=== PATIENT | male | born 1980 | race Caucasian/White ===

== ENCOUNTER 2023-07-03 15:18 | Inpatient (IN) | payer MEDICAID ==
[~2023-07-03] VITALS: Ht 175.3 cm; Wt 141.3 kg
[2023-07-03 15:49] LABS: Basophils # (auto) 0 10 ^3/uL (0-0.2); Basophils % (auto) 0.5 % (0.0-2.0); Eosinophils # (auto) 0.1 10 ^3/uL (0-0.8); Eosinophils % (auto) 1.3 % (0.0-7.0); Hemoglobin 15.9 g/dL (13.5-17.5); Lymphocytes # (auto) 2.7 10 ^3/uL (0.4-5.4); Lymphocytes % (auto) 32.8 % (10.0-50.0); Mean Corpuscular Hemoglobin 31.1 pg (28.0-32.0); Mean Corpuscular Hgb Conc. 34.6 g/dL (32.0-36.0); Monocytes # (auto) 0.6 10 ^3/uL (0-1.3); Monocytes % (auto) 6.9 % (0.0-12.0); Neutrophils # (auto) 4.8 10 ^3/uL (1.6-8.6); Neutrophils % (auto) 58.5 % (37.0-80.0); Red Blood Cells 5.12 10^6/uL (4.5-5.90); White Blood Cell 8.1 10^3/uL (4.4-10.8)
[2023-07-03 15:57] LABS: Alanine Aminotransferase 73 U/L (7-40); Albumin 4.8 g/dL (3.2-4.8); Alkaline Phosphatase 48 U/L (46-116); Anion Gap 4 (5-15); Aspartate Aminotransferase 26 U/L (13-40); BUN/Creatinine Ratio 9.9 (10.0-20.0); Bilirubin, Total 0.5 mg/dL (0.2-1.0); Blood Urea Nitrogen 9 mg/dL (9-23); Calcium 10.5 mg/dL (8.5-10.1); Carbon Dioxide 30 mmol/L (20-30); Chloride 106 mmol/L (98-107); Glucose 94 mg/dL (74-106); Potassium 4.1 mmol/L (3.5-5.1); Sodium 140 mmol/L (136-145); Total Protein 7.2 g/dL (5.7-8.2)
[2023-07-03] MEDS: ASPirin 81 mg TAB PO ONE (16:13)
[2023-07-03] MEDS ORDERED: MORPHINE SULFATE INJ 2 MG/ml SYRG IV PRN (18:45)
[2023-07-03] MEDS ORDERED: DOCUSATE SOD 100 MG CAP PO PRN (18:45)
[2023-07-03] MEDS ORDERED: ONDANSETRON HCL 4 MG/2 ML VIAL IV PRN (18:45)
[2023-07-03] MEDS ORDERED: NITROGLYCERIN 0.4 MG SL TAB SL PRN (18:45)
[2023-07-03] MEDS ORDERED: OLME40TA78 PO (19:40)
[2023-07-03] MEDS ORDERED: LEVO175T2 PO (19:40)
[2023-07-04] VITALS (10 sets, daily range): BP systolic 101–137; BP diastolic 45–78; PULSE 63–108; RESP 16–22; TEMP 97.4–98.6; O2SAT 97–100
[2023-07-04] MEDS: SODIUM CHLOR 0.9% PF (SALINE LOCK) 10ML VIAL/SYR IV SCH (00:59)
[2023-07-04 05:13] LABS: Basophils # (auto) 0.1 10 ^3/uL (0-0.2); Basophils % (auto) 0.7 % (0.0-2.0); Eosinophils # (auto) 0.3 10 ^3/uL (0-0.8); Eosinophils % (auto) 3.3 % (0.0-7.0); Hematocrit 45.2 % (41.0-53.0); Hemoglobin 15.6 g/dL (13.5-17.5); Lymphocytes # (auto) 3.4 10 ^3/uL (0.4-5.4); Mean Corpuscular Hemoglobin 31.3 pg (28.0-32.0); Mean Corpuscular Hgb Conc. 34.5 g/dL (32.0-36.0); Mean Corpuscular Volume 90.7 fL (80.0-100.0); Monocytes # (auto) 0.5 10 ^3/uL (0-1.3); Monocytes % (auto) 6.2 % (0.0-12.0); Neutrophils # (auto) 3.8 10 ^3/uL (1.6-8.6); Neutrophils % (auto) 47.8 % (37.0-80.0); Nucleated Red Blood Cells % 0.1 %; Red Blood Cells 4.98 10^6/uL (4.5-5.90); Red Cell Distribution Width 13.2 % (11.8-14.3)
[2023-07-04 05:23] LABS: Alanine Aminotransferase 63 U/L (7-40); Albumin 4.4 g/dL (3.2-4.8); Alkaline Phosphatase 43 U/L (46-116); Anion Gap 3 (5-15); Aspartate Aminotransferase 30 U/L (13-40); Blood Urea Nitrogen 11 mg/dL (9-23); Calcium 9.5 mg/dL (8.5-10.1); Carbon Dioxide 30 mmol/L (20-30); Chloride 105 mmol/L (98-107); Glucose 90 mg/dL (74-106); Potassium 3.9 mmol/L (3.5-5.1); Sodium 138 mmol/L (136-145)
[2023-07-04 05:24] LABS: Bilirubin, Total 0.4 mg/dL (0.2-1.0); Total Protein 6.6 g/dL (5.7-8.2)
[2023-07-04] MEDS: LEVOTHYROXINE SODIUM 50 MCG TAB PO SCH (06:21)
[2023-07-04 07:26] LABS: Triglycerides 258 mg/dL (< 150)
[2023-07-04 07:27] LABS: LDL Cholesterol 124 mg/dL (< 100)
[2023-07-04 07:28] LABS: Cholesterol 179 mg/dL (< 200); HDL Cholesterol 33 mg/dL (40-59)
[2023-07-04] MEDS: LOSARTAN POTASSIUM 50 MG TAB PO SCH (10:18)
[2023-07-04 11:41] LABS: Amphetamine Screen, Urine Neg (NEGATIVE); Barbiturate Scree,Urine Neg (NEGATIVE); Benzodiazephine Screen, Urine Neg (NEGATIVE); Cocaine Screen, Urine Neg (NEGATIVE)
[2023-07-04 11:42] LABS: Cannabinoid Screen, Urine Neg (NEGATIVE); Opiate Scree,Urine Neg (NEGATIVE); Phencyclidine Screen, Urine Neg (NEGATIVE)
[2023-07-04] MEDS: ACETAMINOPHEN 325 MG TAB PO PRN (11:46)
[2023-07-04] MEDS: ATORVASTATIN 20 MG TAB PO ONE (14:06)
[2023-07-04] MEDS ORDERED: ENOXAPARIN SOD 40 MG/0.4 ML SYRINGE SC SCH (22:00)
[2023-07-04] MEDS: ENOXAPARIN SOD 60 MG/0.6 ML SYRINGE SC SCH (22:07)
[2023-07-05] VITALS (8 sets, daily range): BP systolic 119–157; BP diastolic 62–83; PULSE 71–94; RESP 16–22; TEMP 98–98.6; O2SAT 94–98
[2023-07-05] MEDS: ADENOSINE 118 MG in GIVE UN-DILUTED 0 ML IV ONE (09:59)
[2023-07-05] MEDS: LEVOTHYROXINE SODIUM 100 MCG/5 ML INJ IV SCH (10:47)
[2023-07-05] MEDS: ATORVASTATIN 20 MG TAB PO SCH (21:52)
[2023-07-06] VITALS (13 sets, daily range): BP systolic 106–124; BP diastolic 60–85; PULSE 60–80; RESP 12–21; TEMP 98–98.3; O2SAT 95–99
[2023-07-06 06:53] LABS: Basophils # (auto) 0.1 10 ^3/uL (0-0.2); Basophils % (auto) 0.7 % (0.0-2.0); Eosinophils # (auto) 0.2 10 ^3/uL (0-0.8); Eosinophils % (auto) 2.5 % (0.0-7.0); Hematocrit 46.3 % (41.0-53.0); Hemoglobin 15.6 g/dL (13.5-17.5); Lymphocytes # (auto) 2.7 10 ^3/uL (0.4-5.4); Lymphocytes % (auto) 35.8 % (10.0-50.0); Mean Corpuscular Hemoglobin 30.6 pg (28.0-32.0); Mean Corpuscular Hgb Conc. 33.6 g/dL (32.0-36.0); Monocytes # (auto) 0.5 10 ^3/uL (0-1.3); Monocytes % (auto) 7.1 % (0.0-12.0); Neutrophils % (auto) 53.9 % (37.0-80.0); Nucleated Red Blood Cells % 0.1 %; Red Blood Cells 5.09 10^6/uL (4.5-5.90); White Blood Cell 7.5 10^3/uL (4.4-10.8)
[2023-07-06 06:57] LABS: Calcium 9.5 mg/dL (8.5-10.1); Chloride 105 mmol/L (98-107); Potassium 4.1 mmol/L (3.5-5.1); Sodium 138 mmol/L (136-145)
[2023-07-06 06:58] LABS: Anion Gap 3 (5-15); Carbon Dioxide 30 mmol/L (20-30)
[2023-07-06 06:59] LABS: INR 1.02 (0.9-1.15); Partial Thromboplastin Time 29.5 SEC (24.5-34.5); Prothrombin Time 10.7 sec (9.3-11.8)
[2023-07-06 07:03] LABS: BUN/Creatinine Ratio 10.4 (10.0-20.0); Blood Urea Nitrogen 12 mg/dL (9-23); Glucose 92 mg/dL (74-106)
[2023-07-06 09:07] LABS: Hepatitis B Surface Antigen Negative (Negative)
[2023-07-06 09:29] LABS: Hepatitis C Antibody Negative (Negative)
[2023-07-06] MEDS: IODIXANOL 320MG/ML 100ML BTL IV ONE ×2 (14:05→14:50)
[2023-07-06] MEDS: LIDOCAINE 2%HCL (LOCAL ANESTH.) INJ 20ML MDV ONE (14:05)
[2023-07-06] MEDS: fentaNYL CITRATE 100 MCG/2 ML VL ONE (14:11)
[2023-07-06] MEDS: MIDAZOLAM HCL 2MG/2ML 2ml VIAL (1mg/ml) ONE (14:11)
[2023-07-06] MEDS: ANGIOMAX 250 MG VIAL IV ONE (14:11)
[2023-07-06] MEDS: HEPARIN SODIUM (PORCINE) 5000 UNITS/ML 1ML VIAL ONE (14:12)
[2023-07-06] MEDS: VERAPAMIL 2.5MG/ML INJ 2ML VIAL IV ONE (14:12)
[2023-07-06] MEDS: SODIUM CHL 0.9% 0 ML ONE (14:12)
[2023-07-07] VITALS (8 sets, daily range): BP systolic 107–143; BP diastolic 57–83; PULSE 66–84; RESP 18–20; TEMP 97.9–98.7; O2SAT 93–97
[2023-07-07 07:27] LABS: Chloride 105 mmol/L (98-107); Potassium 4.4 mmol/L (3.5-5.1); Sodium 138 mmol/L (136-145)
[2023-07-07 07:28] LABS: Anion Gap 3 (5-15); Calcium 9.7 mg/dL (8.5-10.1); Carbon Dioxide 30 mmol/L (20-30)
[2023-07-07 07:33] LABS: BUN/Creatinine Ratio 10.8 (10.0-20.0); Blood Urea Nitrogen 12 mg/dL (9-23); Glucose 87 mg/dL (74-106)
[2023-07-07] MEDS ORDERED: ENOXAPARIN SOD 60 MG/0.6 ML SYRINGE SC SCH (10:00)
[2023-07-07] MEDS: ENOXAPARIN SOD 40 MG/0.4 ML SYRINGE SC SCH (12:22)
[2023-07-07 20:50] LABS: COVID19 ANTIGEN SOFIA FIA NEGATIVE (NEGATIVE)
[2023-07-08 08:00] VITALS: PULSE 71; RESP 18; O2SAT 96
[2023-07-08 09:00] VITALS: BP 120/70; PULSE 71; RESP 18; TEMP 97.9; O2SAT 96
[2023-07-08 13:00] VITALS: BP 113/73; PULSE 77; RESP 16; TEMP 98.3; O2SAT 92
[2023-07-08 16:58] VITALS: BP 155/80; PULSE 80; RESP 18; TEMP 97.7; O2SAT 98
[2023-07-08 20:00] VITALS: PULSE 100; RESP 16
[2023-07-08 22:00] VITALS: BP 125/74; PULSE 83; RESP 18; TEMP 98.7; O2SAT 97
[2023-07-09] VITALS (8 sets, daily range): BP systolic 106–133; BP diastolic 58–77; PULSE 65–88; RESP 16–20; TEMP 97.7–98.7; O2SAT 94–98
[2023-07-09] MEDS: HYDROcodone-ACET 5/325MG TAB PO PRN (15:14)
[2023-07-10] VITALS (9 sets, daily range): BP systolic 106–163; BP diastolic 67–96; PULSE 61–93; RESP 15–19; TEMP 97.6–99; O2SAT 96–98
[2023-07-11 00:04] VITALS: BP 129/78
[2023-07-11 05:23] VITALS: BP 152/81; PULSE 73; RESP 18; TEMP 97.8; O2SAT 99
== END 2023-07-11 07:15 | disposition short-term general hospital (02) | DRG 191 ==
LOC: ER 15:18 → TELE 18:32 → TELE-WESTW 07-04 03:56
PROVIDERS: ADMIT Nurse Practitioner Family; ATTEND Family Medicine
PROC: 5A09357 Assistance with Respiratory Ventilation, Less than 24 Consecutive Hours, Continuous Positive Airway Pressure (ICD-10-PCS; 2023-07-04)
PROC: 4A023N7 Measurement of Cardiac Sampling and Pressure, Left Heart, Percutaneous Approach (ICD-10-PCS; principal; 2023-07-06)
PROC: B211YZZ Fluoroscopy of Multiple Coronary Arteries using Other Contrast (ICD-10-PCS; 2023-07-06)
DX: I25.110 Atherosclerotic heart disease of native coronary artery with unstable angina pectoris (principal); I24.9 Acute ischemic heart disease, unspecified; E66.01 Morbid (severe) obesity due to excess calories; E78.1 Pure hyperglyceridemia; E78.00 Pure hypercholesterolemia, unspecified; K21.9 Gastro-esophageal reflux disease without esophagitis; I10 Essential (primary) hypertension; G47.30 Sleep apnea, unspecified; Z68.42 Body mass index [BMI] 45.0-49.9, adult; Z90.49 Acquired absence of other specified parts of digestive tract; Z82.49 Family history of ischemic heart disease and other diseases of the circulatory system; Z87.442 Personal history of urinary calculi
CPT/HCPCS: 36415; 71045; 78452; 80048; 80053; 80061; 80307; 83036; 83735; 84443; 84484; 85025; 85610; 85730; 86803; 86850; 86900; 86901; 87340; 87426; 93005; 93017; 93306; 93458; 94660; 99152; G0378; J0153; J2250; J3490; Q9967

== ENCOUNTER 2023-10-16 20:02 | Inpatient (IN) | payer MEDICAID ==
[~2023-10-16] VITALS: Ht 180.3 cm; Wt 142.6 kg
[~2023-10-16 20:02] MED LIST: DICL50TA4 PO; HYDR-4902 PO; LEVO175T2 PO; OLME40TA78 PO; TRAM50TA2 PO
[2023-10-16 20:54] LABS: Basophils # (auto) 0 10 ^3/uL (0-0.2); Basophils % (auto) 0.6 % (0.0-2.0); Eosinophils # (auto) 0.2 10 ^3/uL (0-0.8); Eosinophils % (auto) 2.5 % (0.0-7.0); Hematocrit 44.4 % (41.0-53.0); Hemoglobin 15.3 g/dL (13.5-17.5); Lymphocytes # (auto) 2.5 10 ^3/uL (0.4-5.4); Lymphocytes % (auto) 35.1 % (10.0-50.0); Mean Corpuscular Hemoglobin 30.9 pg (28.0-32.0); Mean Corpuscular Hgb Conc. 34.4 g/dL (32.0-36.0); Monocytes # (auto) 0.4 10 ^3/uL (0-1.3); Monocytes % (auto) 6.3 % (0.0-12.0); Neutrophils # (auto) 3.9 10 ^3/uL (1.6-8.6); Neutrophils % (auto) 55.5 % (37.0-80.0); Nucleated Red Blood Cells % 0.1 %; Red Blood Cells 4.93 10^6/uL (4.5-5.90); Red Cell Distribution Width 13.1 % (11.8-14.3)
[2023-10-16] MEDS: NITROGLYCERIN 2% OINT 1GM PKG TD ONE (21:03)
[2023-10-16] MEDS: ASPirin 81 mg TAB PO ONE (21:03)
[2023-10-16 21:07] LABS: Alanine Aminotransferase 26 U/L (7-40); Alkaline Phosphatase 58 U/L (46-116)
[2023-10-16 21:08] LABS: Albumin 4.5 g/dL (3.2-4.8); Anion Gap 5 (5-15); Aspartate Aminotransferase 14 U/L (13-40); BUN/Creatinine Ratio 13.2 (10.0-20.0); Bilirubin, Total 0.4 mg/dL (0.2-1.0); Blood Urea Nitrogen 14 mg/dL (9-23); Calcium 10.1 mg/dL (8.5-10.1); Carbon Dioxide 30 mmol/L (20-30); Chloride 105 mmol/L (98-107); Glucose 131 mg/dL (74-106); Potassium 3.9 mmol/L (3.5-5.1); Sodium 140 mmol/L (136-145); Total Protein 7.4 g/dL (5.7-8.2)
[2023-10-16 23:45] VITALS: PULSE 77; RESP 14; O2SAT 97
[2023-10-16] MEDS: ONDANSETRON HCL 4 MG/2 ML VIAL IV ONE (23:50)
[2023-10-17] VITALS (9 sets, daily range): BP systolic 110–133; BP diastolic 3–87; PULSE 64–101; RESP 17–19; TEMP 97.7–98.2; O2SAT 94–97
[2023-10-17] MEDS: ACETAMINOPHEN 500 MG TAB PO ONE (00:39)
[2023-10-17] MEDS ORDERED: MELATONIN 5 MG TAB PO PRN (01:15)
[2023-10-17] MEDS ORDERED: NITROGLYCERIN 0.4 MG SL TAB SL PRN (01:15)
[2023-10-17] MEDS ORDERED: ACETAMINOPHEN 325 MG TAB PO PRN (01:15)
[2023-10-17] MEDS ORDERED: ONDANSETRON HCL 4 MG/2 ML VIAL IV PRN (01:15)
[2023-10-17] MEDS ORDERED: MORPHINE SULFATE INJ 2 MG/ml SYRG IV PRN (01:15)
[2023-10-17] MEDS ORDERED: hydrALAZINE HCL 20 MG/ML VL IV PRN (01:30)
[2023-10-17] MEDS: HYDROcodone-ACET 5/325MG TAB PO PRN (04:39)
[2023-10-17 04:57] LABS: Urine Bacteria FEW /hpf (None Seen); Urine Blood 1+ /uL (Negative); Urine Clarity Clear (Clear); Urine Color Yellow (Yellow); Urine Mucus FEW (None Seen); Urine Protein, UAD 1+ (Negative); Urine Specific Gravity 1.034 (1.001-1.035); Urine Urobilinogen Normal (Negative); Urine WBC 32 /hpf (0 - 3); Urine pH 5.5 (5.0-9.0)
[2023-10-17 06:27] LABS: Chloride 105 mmol/L (98-107); Potassium 3.9 mmol/L (3.5-5.1); Sodium 140 mmol/L (136-145)
[2023-10-17 06:28] LABS: Anion Gap 5 (5-15); Calcium 9.8 mg/dL (8.7-10.4); Carbon Dioxide 30 mmol/L (20-30)
[2023-10-17 06:33] LABS: BUN/Creatinine Ratio 16.2 (10.0-20.0); Blood Urea Nitrogen 17 mg/dL (9-23); Glucose 92 mg/dL (74-106)
[2023-10-17] MEDS ORDERED: FAMOTIDINE 20 MG TAB PO SCH (10:00)
[2023-10-17] MEDS ORDERED: FURO40TA4 PO (10:09)
[2023-10-17] MEDS ORDERED: ASPI325T6 PO (10:09)
[2023-10-17] MEDS ORDERED: METO25TA5 PO (10:09)
[2023-10-17] MEDS ORDERED: ATOR20TA50 PO (10:09)
[2023-10-17] MEDS ORDERED: CLOP75TA70 PO (10:09)
[2023-10-17] MEDS ORDERED: POTA-36 PO (10:10)
[2023-10-17] MEDS: cefTRIAXone 1GM/50ML D5W 50 ML IV SCH (10:39)
[2023-10-17] MEDS: ENOXAPARIN SOD 40 MG/0.4 ML SYRINGE SC SCH (10:40)
[2023-10-17] MEDS: ASPirin 81 mg TAB PO SCH (10:40)
[2023-10-17] MEDS: LEVOTHYROXINE SODIUM 100 MCG TAB PO SCH (15:03)
[2023-10-17] MEDS: LEVOTHYROXINE SODIUM 25 MCG TAB PO SCH (15:04)
[2023-10-17] MEDS: LOSARTAN POTASSIUM 50 MG TAB PO SCH (15:28)
[2023-10-17] MEDS: ATORVASTATIN 20 MG TAB PO SCH (22:50)
[2023-10-18] VITALS (13 sets, daily range): BP systolic 115–151; BP diastolic 61–93; PULSE 68–86; RESP 12–20; TEMP 97.3–98.3; O2SAT 91–98
[2023-10-18] MEDS ORDERED: FAMOTIDINE 20 MG TAB PO SCH (10:00)
[2023-10-18] MEDS: IOHEXOL 350 MG/ML 100ML IJ ONE (13:19)
[2023-10-18] MEDS: LIDOCAINE 2%HCL (LOCAL ANESTH.) INJ 20ML MDV ONE (14:34)
[2023-10-18] MEDS: IODIXANOL 320MG/ML 100ML BTL IV ONE (14:34)
[2023-10-18] MEDS: VERAPAMIL 2.5MG/ML INJ 2ML VIAL IV ONE (14:36)
[2023-10-18] MEDS: fentaNYL CITRATE 100 MCG/2 ML VL ONE (14:36)
[2023-10-18] MEDS: ANGIOMAX 250 MG VIAL IV ONE (14:36)
[2023-10-18] MEDS: HEPARIN SODIUM (PORCINE) 5000 UNITS/ML 1ML VIAL ONE (14:36)
[2023-10-18] MEDS: MIDAZOLAM HCL 2MG/2ML 2ml VIAL (1mg/ml) ONE (14:37)
[2023-10-18] MEDS: SODIUM CHL 0.9% 0 ML ONE (14:37)
[2023-10-18 15:01] LABS: INR 1.01 (0.9-1.15); Prothrombin Time 10.7 sec (9.3-11.8)
[2023-10-18] MEDS ORDERED: ASPI81CH49 PO (15:59)
[2023-10-18] MEDS ORDERED: POTA-180 PO (15:59)
[2023-10-18] MEDS ORDERED: GABA-1250 PO (16:06)
[2023-10-18] MEDS: SODIUM CHLORIDE 0.9% 1,000 ML IV SCH (19:00)
[2023-10-19 01:00] VITALS: BP_SYST 135; BP_SYST 145; BP_SYST 146; BP_DIAS 62; BP_DIAS 77; BP_DIAS 90; PULSE 70; PULSE 89; PULSE 93; RESP 17; RESP 18; TEMP 96.5; O2SAT 94; O2SAT 95; O2SAT 99
[2023-10-19 06:30] LABS: Basophils # (auto) 0 10 ^3/uL (0-0.2); Basophils % (auto) 0.6 % (0.0-2.0); Eosinophils # (auto) 0.2 10 ^3/uL (0-0.8); Eosinophils % (auto) 2.2 % (0.0-7.0); Hematocrit 43.7 % (41.0-53.0); Lymphocytes # (auto) 2.5 10 ^3/uL (0.4-5.4); Lymphocytes % (auto) 33.6 % (10.0-50.0); Mean Corpuscular Hemoglobin 30.8 pg (28.0-32.0); Mean Corpuscular Hgb Conc. 34.4 g/dL (32.0-36.0); Mean Corpuscular Volume 89.6 fL (80.0-100.0); Monocytes # (auto) 0.5 10 ^3/uL (0-1.3); Neutrophils # (auto) 4.2 10 ^3/uL (1.6-8.6); Neutrophils % (auto) 56.6 % (37.0-80.0); Nucleated Red Blood Cells % 0.1 %; Red Blood Cells 4.88 10^6/uL (4.5-5.90); White Blood Cell 7.3 10^3/uL (4.4-10.8)
[2023-10-19 06:44] LABS: Alanine Aminotransferase 28 U/L (7-40); Alkaline Phosphatase 53 U/L (46-116); Anion Gap 5 (5-15); BUN/Creatinine Ratio 10.4 (10.0-20.0); Blood Urea Nitrogen 10 mg/dL (9-23); Calcium 9.6 mg/dL (8.5-10.1); Carbon Dioxide 26 mmol/L (20-30); Chloride 107 mmol/L (98-107); Glucose 85 mg/dL (74-106); Potassium 3.8 mmol/L (3.5-5.1); Sodium 138 mmol/L (136-145)
[2023-10-19 06:45] LABS: Albumin 4.2 g/dL (3.2-4.8); Aspartate Aminotransferase 16 U/L (13-40); Bilirubin, Total 1.1 mg/dL (0.2-1.0); Total Protein 6.7 g/dL (5.7-8.2)
[2023-10-19] MEDS: LEVOTHYROXINE SODIUM 100 MCG TAB PO ONE (07:15)
[2023-10-19] MEDS ORDERED: LEVOTHYROXINE SODIUM 100 MCG TAB PO ONE (07:15)
[2023-10-19] MEDS ORDERED: LEVOTHYROXINE SODIUM 25 MCG TAB PO ONE (07:15)
[2023-10-19] MEDS: LEVOTHYROXINE SODIUM 25 MCG TAB PO ONE (07:16)
[2023-10-19 08:00] VITALS: PULSE 87; RESP 18; O2SAT 95
[2023-10-19 08:40] VITALS: BP_SYST 123; BP_SYST 129; BP_SYST 131; BP_DIAS 57; BP_DIAS 65; BP_DIAS 75; PULSE 79; RESP 21; TEMP 98; O2SAT 98
[2023-10-19] MEDS ORDERED: IOHEXOL 350 MG/ML 100ML IJ ONE (08:41)
[2023-10-19 10:46] VITALS: BP 129/75; PULSE 79; RESP 18; TEMP 36.7; O2SAT 98
[2023-10-20] MEDS ORDERED: LEVOTHYROXINE SODIUM 100 MCG TAB PO SCH (06:00)
[2023-10-20] MEDS ORDERED: LEVOTHYROXINE SODIUM 25 MCG TAB PO SCH (06:00)
== END 2023-10-19 12:10 | disposition home or self-care (01) | DRG 192 ==
LOC: ER 20:02 → TELE 10-17 01:17 → TELE-E-ADS 10-17 01:17 → OBSVTOIN 10-17 08:34
PROVIDERS: ADMIT Nurse Practitioner Family; ATTEND Nurse Practitioner Family
PROC: 4A023N7 Measurement of Cardiac Sampling and Pressure, Left Heart, Percutaneous Approach (ICD-10-PCS; principal; 2023-10-18)
PROC: B211YZZ Fluoroscopy of Multiple Coronary Arteries using Other Contrast (ICD-10-PCS; 2023-10-18)
PROC: B215YZZ Fluoroscopy of Left Heart using Other Contrast (ICD-10-PCS; 2023-10-18)
DX: M94.0 Chondrocostal junction syndrome [Tietze] (principal); E66.9 Obesity, unspecified; K21.9 Gastro-esophageal reflux disease without esophagitis; E78.5 Hyperlipidemia, unspecified; I10 Essential (primary) hypertension; Z82.49 Family history of ischemic heart disease and other diseases of the circulatory system; Z95.1 Presence of aortocoronary bypass graft; Z90.49 Acquired absence of other specified parts of digestive tract; Z68.42 Body mass index [BMI] 45.0-49.9, adult
CPT/HCPCS: 36415; 71045; 71275; 80048; 80053; 81001; 83735; 83880; 84443; 84484; 85025; 85610; 85730; 93005; 93306; 93458; 96374; 99152; 99291; G0378; J2250; J2405; Q9967